=== PATIENT | female | born 1965 | race Hispanic/Latino ===

== ENCOUNTER 2016-08-02 06:56 | Inpatient (IN) | payer OTHER ==
[2016-07-31 13:30] VITALS: BMI 22.6
[2016-08-02] MEDS ORDERED: Propofol 10 mg/ml Inj (20 ML) ONE (07:40)
[2016-08-02] MEDS ORDERED: Midazolam 2 MG/2 ML VIAL ONE (07:42)
[2016-08-02] MEDS ORDERED: Bupivacaine/Epi 0.25%-1:200,000 10 ml PF inj IJ ONE (07:55)
[2016-08-02] MEDS ORDERED: Sodium Chloride 0.9% 500 ML IV ONE (08:47)
[2016-08-02] MEDS ORDERED: Lactated Ringer's 1,000 ML IV ONE ×3 (08:47→11:30)
[2016-08-02] MEDS: ceFAZolin IV 2 gm in Dextrose 1 GM/50 ML BAG IVPB ONE ×2 (08:55→09:53)
[2016-08-02] MEDS ORDERED: Neostigmine Methylsulfate 3mg/3ml Syringe IV ONE (10:47)
[2016-08-02] MEDS ORDERED: HYDROmorphone 0.5 mg/0.5 ml ISec IVP PRN (11:00)
--- NOTE | 2016-08-02 11:13 | PCM.SURG1 ---
Surgeon's Initial Post Op Note - Surgeon's Notes Surgeon: benjamín pérez md Manager Regional Sales: ginger HENRY Type of Anesthesia: General Endo, Local Pre-Operative Diagnosis: fibroid uterus. chronic pelvic pain. abnormal uterine bleeding. prolpased uterus Operative Findings: Total robotic hysterectomy bilateral salpingectomy. Uterosacra ligament suspenssion. umbilical hernia repair. Lysis of adhesions severe adhesions from prior c/s x2, bariatric surgery and laparoscopy. Cystoscopy. Detailed Operative Report. This is a 51 years old female with symptomatic prolapsed and large fibroid uterus as well as abnormal uterine bleeding. The patient completed an extensive preoperative workup, which included an ultrasound, as well as a pap smear and an endometrial biopsy, chemistry and hematology studies. The patient reported these symptoms and problems as debilitating, and adversely affecting her quality of life. Following a period of failed conservative management, and patient decision was made to proceed with a more invasive approach to address the above noted problems. A decision was finally made to proceed with a total robotic assisted hysterectomy, bilateral salpingoophorectomy, and vaginal vault suspension. A detailed description of this robotic procedure was given to the patient, all risks and benefits of the surgical modality was reviewed, printed material was also given to the patient regarding robotic surgery. The patient fully understood all the risks and benefits and elected to proceed with this proposed procedure. After proper consent was obtained from the patient was taken to the operating room, proper patient identification was completed. She was placed in dorsal lithotomy position; general anesthesia was induced without difficulty. Her legs were placed in adjustable Skip stirrups. Careful attention was placed not to over-flex or over-rotate the lower extremities at the hip or the knee joints. She was prepped and draped appropriately for robotic assisted hysterectomy. Farnco catheter was inserted under sterile conditions. A weighted speculum was placed in the vagina, anterior lip of cervix was grasped with a tenaculum, and a V-care uterine manipulator was inserted through the cervix and secured. The weighted speculum and tenaculum were removed from the patient's vagina and attention was turned to the patient's abdomen. Local anesthetic solutions of 0.25% Marcaine with epinephrine were utilized to infiltrate the skin prior to all abdominal skin incisions. A total of 15 mL of 0.25% Marcaine was utilized throughout the procedure. While tenting the abdominal wall, a Veres needle was inserted through the umbilicus and a pneumoperitoneum was obtained. Approximately 3 cm above the umbilicus in the midline, a 1 cm incision was made with a scalpel and a trocar and sleeve were introduced. A robotic camera was inserted and an initial survey of the patient' s abdomen revealed an enlarged bulky uterus, boggy in appearance. Both ovaries appeared normal with normal appearing fallopian tubes. The patient was placed in Trendelenburg position ready for a da Marcel robotic system to be docked. In addition, an umbilical hernia was noted while inserting the robotic laparoscopic ports. The hernia was approximately 2 cm in diameter. Umbilical hernia contained only Fatty adipose tissue no bowel involvement. 3 robotic ports were utilized for this procedure. The first robotic port was placed on the patient's right side approximately 8 cm left lateral to the camera port, the second robotic port was placed 8 cm right lateral to the camera port and the third robotic port was placed approx. 8 cm lateral the second port. All ports were approx. aligned along the same horizontal line on the abdomen in an arch like fashion. An assistant analyst port was placed 8 cm left lateral to the first robotic port. For the assistant analyst and camera ports we utilized the Versa step trocar system. All trocars were inserted under direct visualization. The placement of the trocars was all accomplished under careful and meticulous placement under direct visualization. Following the placement of all trocars, the da Marcel robotic system was docked in a parallel method without difficulty. The following instruments were utilized for this procedure: the bipolar cautery device, a monopolar beti and finally a ProGrasp. Meticulous and careful lysis of adhesions as well as enterolysis was accomplished utilizing the monopolar beti and bipolar device. Prior to the start of the hysterectomy , lesions involving the pelvic sidewalls in close proximity to both ureters, exploration of the ureters and their courses was necessary. Following meticulous and careful dissection into the pelvic sidewall, both ureters were explored and visualized, peristalsis bilaterally. On the patient's right side, the IP and the round ligaments were identified cauterized and transected, the broad ligament was divided all the way down to the utero cervical junction bladder flap was then created by transecting the visceroperitoneum over the bladder reflection. In a similar fashion, the left round ligament, IP ligament and broad ligament were cauterized sealed and transected, taken down to the level of the cervical uterine junction. Uterine vessels on both sides were sealed and transected. The Uterosacral ligaments were sealed and transected. The monopolar beti and PK were utilized to complete the colpotomy incision around the care vaginal ring. Excellent hemostasis was noted. The uterus, cervix, ovaries and fallopian tubes were delivered transvaginal through the colpotomy incision and sent to pathology for permanent analysis. The colpotomy incision was closed with 2-0 v LOC in a continuous fashion with excellent hemostasis. The vaginal vault suspension was achieved by suspending the vaginal cuff to the base of the uterosacral ligaments bilaterally. For uterosacral ligament suspension portion of the procedure, the ureters were once again identified to avoid possible compromise or kinking while suspending the vaginal vault. A 2-0 permanent suture material ([place]-Leo) was utilized to suspend the uterosacral ligaments from the base to the vaginal vault cuff incision including both anterior and posterior aspect of the colpotomy incision. Utilizing a 3-0 Monocryl suture, the peritoneum over the colpotomy incision and uterosacral ligaments was re-approximated in a continuous fashion. The abdomen was throughout irrigated and cleared of all clots and debris. FloSeal as well as Interceed was applied to the incision sites. Excellent hemostasis was again noted. All robotic and laparoscopic instruments removed under direct visualization. The robotic arms were undocked, and a da Marcel robotic system was wheeled away from the patient's bedside. Attention was then turned to the umbilical hernia. Sharp and blunt dissection over the hernia isolated the hernia sac which was excised and sent to pathology. The fascia was identified around the defect. Multiple Vicryl sutures in interrupted fashion was utilized to close the fascial defect in a primary fashion. No undue tension was noted following the repair. Skin was closed with 4-0 Monocryl in a subcutaneous fashion. Both assistant analyst and camera ports were closed at the fascial layer utilizing a 2-0 Vicryl suture material in interrupted fashion. Pneumoperitoneum was reduced and all skin incisions were closed utilizing 4-0 Monocryl in a subcutaneous fashion. Dermabond was applied to all incisions. Due to the complexity of this hysterectomy and colpopexy, a diagnostic cystoscopy was completed. The Franco catheter was removed; the bladder was distended with approximately 350 cc of normal saline. A 30 cystoscope was introduced and a survey of the bladder anatomy was completed. The base, and the dome of the bladder appeared normal, both ureteral orifices appeared normal and were efluxing urine freely. The urethra appeared normal. A Franco catheter was reinserted. Vaginal packing was inserted to be removed the next morning. Patient emerged from general anesthesia without difficulty, and was taken to recovery room in stable condition. Prior to incision the patient received antibiotics, prior to closure sponge lap and needle counts were correct x2. Post-Operative Diagnosis: fibroid uterus. chronic pelvic pain. abnormal uterine bleeding. prolpased uterus. umbilical hernia Operation Performed: Total robotic hysterectomy bilateral salpingectomy. Uterosacra ligament suspenssion. umbilical hernia repair. Lysis of adhesions. Cystoscopy. Cystoscopy Specimen/Specimens Removed: uterus cervix tubes and ovaries Estimated Blood Loss: EBL {In ML}: 20 Blood Products Given: N/A Drains Used: No Drains Post-Op Condition: Good Date of Surgery/Procedure: 08/02/16 Time of Surgery/Procedure: 11:14
[2016-08-02] MEDS ORDERED: Trimethobenzamide 200 mg/2 mL Inj IM PRN (11:14)
[2016-08-02] MEDS ORDERED: Sodium Chloride 0.9% 1,000 ML IV SCH (11:15)
[2016-08-02] MEDS ORDERED: HYDROmorphone 1 mg/ml ISec ONE (11:20)
[2016-08-02] MEDS ORDERED: HYDROmorphone 0.5 mg/0.5 ml ISec IVP ONE ×2 (12:05→13:27)
[2016-08-02] MEDS: Morphine 4 MG/ML VIAL IVP PRN ×2 (16:44→22:16)
[2016-08-02] MEDS: ceFAZolin IV 1 gm in Dextrose 1 GM/50 ML BAG IVPB SCH ×2 (16:57→22:37)
[2016-08-03] MEDS: ceFAZolin IV 1 gm in Dextrose 1 GM/50 ML BAG IVPB SCH (06:01)
[2016-08-03] MEDS ORDERED: Oxycodone/Acetaminophen 5/325 mg Tab PO PRN (08:53)
--- NOTE | 2016-08-03 09:00 | CP.PCM.PN ---
Subjective - Date & Time of Evaluation Date of Evaluation: 08/03/16 Time of Evaluation: 08:57 - Subjective Subjective: Patient seen and evaluated at bedside, NAD. Patient reports 1/10 pain this morning, denies nausea or vomiting. Abdominal surgical sites are well approximated, no drainage. Objective - Vital Signs/Intake and Output Vital Signs (last 24 hours): Temp Pulse Resp BP Pulse Ox 97.9 F 78 20 131/68 97 08/03/16 00:00 08/03/16 00:00 08/03/16 00:00 08/03/16 00:00 08/03/16 00:00 Intake and Output: 08/03/16 08/03/16 06:59 18:59 Intake Total 2810 Output Total 1200 Balance 1610 - Medications Medications: Current Medications Sodium Chloride (Sodium Chloride 0.9%) 1,000 mls @ 125 mls/hr IV .Q8H WILLY Last Admin: 08/03/16 00:30 Dose: 125 mls/hr Morphine Sulfate (Morphine) 4 mg IVP Q4H PRN PRN Reason: Pain, severe (8-10) Last Admin: 08/02/16 22:16 Dose: 4 mg Ondansetron HCl (Zofran Inj) 4 mg IVP ONCE PRN PRN Reason: Nausea/Vomiting Oxycodone/Acetaminophen (Percocet 5/325 Mg Tab) 1 tab PO Q4H PRN PRN Reason: Pain, moderate (4-7) Stop: 08/06/16 08:54 Trimethobenzamide HCl (Tigan) 200 mg IM Q6 PRN PRN Reason: Nausea/Vomiting - Constitutional Appears: Well, Non-toxic, No Acute Distress - GI/Abdominal Exam GI & Abdominal Exam: Soft, Normal Bowel Sounds Additional comments: very mild tenderness to palpation of the abdomen - Exam Additional comments: minimal drainage - Neurological Exam Neurological Exam: Oriented x3 - Psychiatric Exam Psychiatric exam: Normal Affect, Normal Mood - Skin Additional comments: Surgical sites well approximated with dermabond, no drainage, no erythema Assessment and Plan - Assessment and Plan (Free Text) Assessment: 51 year old female POD# 1 for total robotic hysterectomy, bilateral salpingectomy, uretosacral ligament suspension, umbilical hernia, and cystoscopy Plan: Patient seen and evaluated, d/w attending Dr. Alfaro Patient to resume regular diet, PO pain medication Out of bed this morning Patient has Rx in chart from Dr. Alfaro Patient to f/u with Dr. Alfaro in his office in 2 weeks Patient to DC later today
[2016-08-03 14:52] VITALS: BP 135/92; PULSE 60; RESP 18; TEMP 98.2; O2SAT 100
== END 2016-08-03 13:10 | disposition home or self-care (01) | DRG 359 ==
LOC: C.SDS 06:56 → C.4M 11:14
PROVIDERS: ADMIT Obstetrics & Gynecology; ATTEND Obstetrics & Gynecology
PROC: 0UT78ZZ Resection of Bilateral Fallopian Tubes, Via Natural or Artificial Opening Endoscopic (ICD-10-PCS; 2016-08-02)
PROC: 0WQF4ZZ Repair Abdominal Wall, Percutaneous Endoscopic Approach (ICD-10-PCS; 2016-08-02)
PROC: 0USG4ZZ Reposition Vagina, Percutaneous Endoscopic Approach (ICD-10-PCS; 2016-08-02)
PROC: 0UT98ZZ Resection of Uterus, Via Natural or Artificial Opening Endoscopic (ICD-10-PCS; 2016-08-02)
PROC: 8E0W4CZ Robotic Assisted Procedure of Trunk Region, Percutaneous Endoscopic Approach (ICD-10-PCS; 2016-08-02)
PROC: 0UTC8ZZ Resection of Cervix, Via Natural or Artificial Opening Endoscopic (ICD-10-PCS; principal; 2016-08-02 07:45)
DX: D25.9 Leiomyoma of uterus, unspecified (principal); D27.0 Benign neoplasm of right ovary; N83.8 Other noninflammatory disorders of ovary, fallopian tube and broad ligament; R10.2 Pelvic and perineal pain; N83.12 Corpus luteum cyst of left ovary; Z68.22 Body mass index [BMI] 22.0-22.9, adult; K42.9 Umbilical hernia without obstruction or gangrene; N81.4 Uterovaginal prolapse, unspecified